=== PATIENT | female | born 1965 | race Caucasian/White ===

== ENCOUNTER → 2017-04-19 | Outpatient (CLI) | payer OTHER ==
[~2017-04-19] MED LIST: TYLOX 5/500 CAP1 CAP PO
--- NOTE | ~2017-04-19 | MY29 ---
[facility] A Service of [facility] RADIOLOGY TEXT RESULTS PATIENT: IRMA HODGES LOCATION: [facility] : 63 UNIT #: [id number] AGE: [address]: Leslie Weiss MD SEX: F ORDER DR: [id number] [facility] [address] [place], [place] [address] [id number] O MR#: [id number] Acc #: [id number] NAME: IRMA HODGES : 1965 SEX: F STUDY DATE/TIME: 04/19/2017 15:34 UNIT: [facility] ROOM: STUDY DESCRIPTION: MY YADIEL SCREENING W/ CAD BILAT Attending Physician: Leslie Weiss M.D. Referring Physician: Leslie Weiss M.D. Ordering Physician: Leslie Weiss M.D. Primary Care Physician: Leslie Weiss M.D. MEDICAL IMAGING REPORT This report is preliminary unless electronic signature is present EXAM Digital screening mammogram, 04/19/2017; [facility]. HISTORY 51-year-old woman, no risk elevation. Annual screen. COMPARISON Mammograms date to 05/17/2006, with most recent comparison 03/02/2016. FINDINGS Digital imaging of each breast was completed utilizing a two-view examination of each breast in craniocaudal and mediolateral-oblique projections. Review and interpretation of digital mammograms include a second review in conjunction with FDA-approved CAD device. There is a normal parenchymal presentation bilaterally consistent with the patient's age. There are no breast masses imaged and no parenchymal asymmetry is visualized. There are no suspicious microcalcifications and I see no focal architectural disturbance. IMPRESSION Negative screening digital mammogram. One-year followup recommended. Patients over the age of 40 are entered into a reminder system with target due date for the next mammogram. A result letter will also be sent to the patient. BIRADS: 1 Negative. ADDENDUM Breast parenchyma is predominately fatty replaced. Dictated by... [facility] A Service [facility] RADIOLOGY TEXT RESULTS PATIENT: IRMA HODGES LOCATION: [facility] : 63 UNIT #: [id number] AGE: [address]: Leslie Weiss MD SEX: F ORDER DR: Joe Torres M.D. THIS IS AN ELECTRONICALLY VERIFIED REPORT Joe Torres M.D. at 04/22/2017 8:06 AM ANGY/mariangel TD: 04/19/2017 21:58 JOB #: [id number] MEDICAL IMAGING REPORT Page 1 of 1 COPY
== END | disposition home or self-care (01) ==
LOC: CWCC 15:20
DX: Z12.31 Encounter for screening mammogram for malignant neoplasm of breast (principal); R92.8 Other abnormal and inconclusive findings on diagnostic imaging of breast
CPT/HCPCS: G0202